=== PATIENT | male | born 1955 | race Caucasian/White ===

== ENCOUNTER 2016-10-02 18:08 | Emergency (ER) | payer OTHER ==
[~2016-10-02] VITALS: Ht 188 cm; Wt 104.5 kg
[2016-10-02 18:27] VITALS: BP 137/89; PULSE 110; RESP 19; O2SAT 96
--- NOTE | 2016-10-02 20:06 | DRSVH ---
PROCEDURE: X-RAY PELVIS W/LAT HIP (RT) ([id number]) INDICATIONS: injury TECHNIQUE: AP pelvis with lateral view(s) of the right hip(s). COMPARISON: None. FINDINGS: Bones: No fractures or dislocations. Pelvic ring appears intact. No suspicious bony lesions. Soft tissues: The visualized bowel gas pattern is normal. No suspicious soft tissue calcifications. IMPRESSION: No visualized acute fracture or dislocation. However, if clinical concern and/or pain pe rsist, short interval imaging followup in 7-10 days is recommended, as occult injury cannot be defini tively excluded. Dictated by: Daria Oneill M.D. on 10/02/2016 at 20:03 Approved by: Daria Oneill M.D. on 10/02/2016 at 20:04
--- NOTE | 2016-10-02 20:06 | DRSVH ---
PROCEDURE: X-RAY RIGHT KNEE, THREE VIEWS ([id number]) INDICATIONS: injury TECHNIQUE: 3 views of the knee were acquired. COMPARISON: None. FINDINGS: Bones: No fractures or dislocations. No suspicious bony lesions. Soft tissues: No joint effusion. No suspicious soft tissue calcifications. IMPRESSION: No visualized acute fracture or dislocation. However, if clinical concern and/or pain pe rsist, short interval imaging followup in 7-10 days is recommended, as occult injury cannot be defini tively excluded. Dictated by: Daria Oneill M.D. on 10/02/2016 at 20:04 Approved by: Daria Oneill M.D. on 10/02/2016 at 20:04
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
[2016-10-02] MEDS ORDERED: TdaP Vaccine 0.5 mL Inj IM ONE (21:05)
[2016-10-02] MEDS ORDERED: Lidocaine 4% 50 mL Topical Solution TOPICAL ONE (21:49)
[2016-10-02] MEDS ORDERED: Lidocaine 4% 50 mL Topical Solution TOPICAL PRN (22:00)
[2016-10-02] MEDS ORDERED: _HYDROcodone/APAP 5-325 mg Tablet PO PRN (22:55)
[2016-10-02] MEDS ORDERED: CEPH-512 PO (23:25)
[2016-10-02 23:43] VITALS: BP 151/96; PULSE 108; RESP 18; O2SAT 98
== END 2016-10-02 23:30 | disposition home or self-care (01) ==
LOC: SED 18:08
DX: S80.211A Abrasion, right knee, initial encounter (principal); S50.811A Abrasion of right forearm, initial encounter; V28.4XXA Motorcycle driver injured in noncollision transport accident in traffic accident, initial encounter; Y93.9 Activity, unspecified; Y92.410 Unspecified street and highway as the place of occurrence of the external cause; Y99.9 Unspecified external cause status; M25.551 Pain in right hip; Z23 Encounter for immunization